=== PATIENT | female | born 2005 | race Hispanic/Latino ===

== ENCOUNTER 2025-06-24 00:39 | Emergency (ER) | payer BC, MEDICAID, OTHER ==
[~2025-06-24] VITALS: Ht 152.4 cm; Wt 103.4 kg
--- NOTE | 2025-06-24 01:06 | ERN ---
ED Note History of Present Illness Stated Complaint: RT KNEE PAIN Chief Complaint: Knee Injury/Swelling Time Seen by MD: 00:45 Time Seen by Midlevel: 01:00 Dictation: Ms. Potts is a 20-year-old female with history of chronic right knee pain and morbid obesity who presented to the emergency department this morning for evaluation of knee pain. States that approximately four months ago she injured her right knee (sprain versus torn meniscus) and has been evaluated multiple times at [facility]. She states she has been referred to Dr. Leelee Kinney but is waiting for them to refer her for MRI. She states that she intermittently has episodes where it pops out" but that she is able to reduce it herself. She states that after these episodes of becomes very stiff and it is difficult for her to walk. She states she is supposed to be wearing a immobilizer but that they are unable to size her due to her weight and the girth of her thigh. She states today the pain became severe, rating 10/10, prompting her to come to the hospital. She denies additional fall/trauma, fever, chills, shortness of breath, cough, chest pain, palpitations, edema, abdominal pain, nausea, vomiting, hematemesis, constipation, diarrhea, melena, hematochezia, dysuria, headache, dizziness, or focal weakness/paresthesia. Allergies: Coded Allergies: No Known Allergies (Unverified Allergy, Unknown, 06/24/25) Emergency Care CAN DRAGGER: None Past Medical History Past Medical History: Other Additional Past Medical Hx: CHRONIC RT KNEE PAIN Surgical History: None PSYCH History: no pertinent psych hx Social History: Lives with family RN Note Reviewed/Agreed w/PFSH: Yes Review of System Dictation REVIEW OF SYSTEMS: CONSTITUTIONAL: Patient denies fevers, chills, sweats and weight changes. EYES: Patient denies any visual symptoms. EARS, NOSE, AND THROAT: No difficulties with hearing. No symptoms of rhinitis or sore throat. CARDIOVASCULAR: Patient denies chest pains, palpitations, orthopnea and paroxysmal nocturnal dyspnea. RESPIRATORY: No dyspnea on exertion, no wheezing or cough. GI: No nausea, vomiting, diarrhea, constipation, abdominal pain, hematochezia or melena. : No urinary hesitancy or dribbling. No nocturia or urinary frequency. No abnormal urethral discharge. MUSCULOSKELETAL: Reports pain right knee x4 months. She states she has and referred to orthopedic surgeon, Dr. Leelee Kinney, is awaiting for them to call her with an appointment for an MRI. She states today pain is worse; rates 10/10. NEUROLOGIC: No chronic headaches, no seizures. Patient denies numbness, tingling or weakness. PSYCHIATRIC: Patient denies problems with mood disturbance. No problems with anxiety. ENDOCRINE: No excessive urination or excessive thirst. DERMATOLOGIC: Patient denies any rashes or skin changes. Initial Vital Sign VS Vital Signs Date Time Temp Pulse Resp B/P (MAP) Pulse Ox O2 Delivery O2 Flow Rate FiO2 06/24/25 00:40 98.4 80 16 122/51 100 Room Air Physical Exam Dictation Vital signs: Reviewed. Afebrile Constitutional: No acute distress. Uncomfortable. Accompanied by family. Head/Face: Normocephalic, atraumatic. Eyes: Periorbital areas with no swelling, redness, or edema. Lids and lashes are normal. Conjunctival injection is absent. Sclera anicteric. Pupils equal, round, reactive to light. ENT: Pinnas intact and no signs of trauma or erythema. Ear canals clear and no discharge. TMs no erythema. No nasal discharge or bleeding noted. Oropharynx with no exudate, redness, swelling, masses, exudates, or evidence of obstruction. Uvula midline. Mucous membranes moist. Neck: Trachea midline, no masses palpated, and no cervical lymphadenopathy. No swelling. Supple, full range of motion. Chest/Axilla: No tenderness, no crepitus, no paradoxical movement, no retractions. Cardiovascular: Regular rate, regular rhythm, no murmur, no gallops. Symmetric pulses. No peripheral edema. Respiratory: Respirations even and unlabored. Lung sounds clear; no wheezes, rales or rhonchi. Room air SpO2 99% Gastrointestinal: Obese. No distention is appreciated. Bowel sounds are normal. No mass or organomegaly . There is no tenderness. No rebound. No rigidity. No voluntary or involuntary guarding. No Benavidez's sign. Neurological: Normal speech, gross motor function intact, gross sensory function intact. No focal weakness/Paresthesia. Musculoskeletal/Extremities: Pain with range of motion right knee. No edema appreciated. No deformity/dislocation/bony crepitus. Symmetric pulses. She has good color, warmth, movement, and sensation distal. Integumentary: Intact. Skin is normal color, warm and dry. Cap refill less than 3 seconds. Results (Laboratory/Radiology) Laboratory/Radiology Laboratory Tests Test 06/24/25 01:55 Urine HCG, Qualitative NEGATIVE (NEGATIVE) Labs Reviewed?: Yes X-RAY Comment: X-ray right knee unremarkable; no obvious fracture or dislocation as interpreted by myself Radiology interpretation pending ED Course ED Course Orders Procedure Category Date Status Time Knee 3vws Rt RAD 06/24/25 Taken 00:52 Knee Immobilizer JOHN 06/24/25 In Process 00:52 Hydrocodone/Apap PHA 06/24/25 Complete 5/325 ([place] 5/325mg) 01:00 ,Urine Test LAB 06/24/25 Complete 01:14 Current Medications Medications (Trade) Dose Ordered Sig/Rishi Route PRN Reason Start Time Stop Time Status Last Admin Dose Admin Acetaminophen/ Hydrocodone Bitart (NORco 5/325MG) 1 tab ONCE ONCE PO 06/24/25 01:00 06/24/25 01:01 DC 06/24/25 02:30 Vital Signs Date Time Temp Pulse Resp B/P (MAP) Pulse Ox O2 Delivery O2 Flow Rate FiO2 06/24/25 00:40 98.4 80 16 122/51 100 Room Air Uneventful ED course. Vital signs stable; afebrile and normotensive with room air SpO2 100%. She complains of pain to the right knee but as no obvious deformity/dislocation/bony crepitus. UHCG negative. X-ray unremarkable; negative for fracture or dislocation. She received dose [place] x 1 and was placed in right knee immobilizer. She was instructed to continue her follow up with Dr. Kinney Medical Decision Making MDM MDM: Differential diagnosis: Dislocation right knee, fracture right knee, right knee strain Rationale: Tests considered and ordered secondary to shared decision making include: X-ray, U hCG Previous outside records reviewed: Old ER visits. Risk of complication and/or morbidity or mortality of patient management: None Medications-Per medication reconciliation Need for hospitalization: Patient does not meet criteria for hospitalization. Need for emergency major/minor surgery: No There are no social concerns with this patient. Prescription drug management: Flexeril, ibuprofen Prescriptions will include symptomatic care Patient's prior external medical records from other ER visits were reviewed by me as indicated. Prior testing and results from previous visits were reviewed. Prior tests were taken into account with medical decision making and resource utilization, independent historian/historians were used to obtain complete medical history. I independently interpreted the test that were performed, results were reviewed by me and considered findings on radiology if ordered. Medical management and examination interpretation discussions were had by me with other qualified healthcare professionals as indicated for the patient's care. DX & DISP Disposition: Discharge Departure Impression: Primary Impression: Chronic pain of right knee Additional Impressions: Strain of right knee, Morbid obesity with BMI of 40.0-44.9, adult Condition: Stable Scripts Ibuprofen (Ibuprofen) 600 Mg Tablet 600 MG PO q8 hours PRN PRN for PAIN, #15 TAB 0 Refills Prov: GIOVANNI CARMICHAEL NP 06/24/25 Cyclobenzaprine HCl (Cyclobenzaprine HCl) 5 Mg Tablet 1 TAB PO HSPRN PRN for muscle spasms, #15 TAB 0 Refills Prov: GIOVANNI CARMICHAEL NP 06/24/25 Additional Instructions: Rest, ice, elevation. Use knee immobilizer. May take Flexeril at bedtime as needed for muscle spasms. Continue ibuprofen every 8 hours with food as needed for discomfort. You will need to call Dr. Knox office on Thursday for follow up. If they do not call you for an appointment with MRI or referral please call the office again. Return to the emergency department for any worsening of symptoms or concerns. Referrals: SELF,REFERRAL (PCP) LEELEE KINNEY MD Time of Disposition: 02:52 GIOVANNI CARMICHAEL NP Jun 24, 2025 01:05
--- NOTE | 2025-06-24 01:42 | NUR ---
UA CUP PROVIDED
[2025-06-24] MEDS: HYDROcodone/APAP 5/325 1 TAB TABLET PO ONE (02:30)
[2025-06-24] MEDS ORDERED: CYCL5TAB3 PO (02:51)
[2025-06-24] MEDS ORDERED: IBUP-1492 PO (02:51)
--- NOTE | 2025-06-24 02:55 | HMCIMG ---
EXAM: CR Right Knee, 3 views CLINICAL HISTORY: Chronic pain. COMPARISON: None provided. FINDINGS: No acute fracture or aggressive appearing osseous lesion. Joint spaces are within normal limits. There is no joint effusion appreciated. The soft tissues are unremarkable. IMPRESSION: No acute bony abnormality is evident. /[place]
[2025-06-24 03:22] VITALS: BP 145/68; PULSE 78; RESP 16; TEMP 98.3; O2SAT 99
== END 2025-06-24 03:22 | disposition home or self-care (01) ==
LOC: EDH 00:39
DX: S86.911A Strain of unspecified muscle(s) and tendon(s) at lower leg level, right leg, initial encounter (principal); M25.561 Pain in right knee; G89.29 Other chronic pain; E66.01 Morbid (severe) obesity due to excess calories; Z68.41 Body mass index [BMI] 40.0-44.9, adult; X58.XXXA Exposure to other specified factors, initial encounter; Y93.89 Activity, other specified; Y92.89 Other specified places as the place of occurrence of the external cause; Y99.8 Other external cause status
CPT/HCPCS: 29505; 73562; 81025; 99283